=== PATIENT | male | born 1995 | race Two or more races ===

== ENCOUNTER 2020-01-24 09:53 | Emergency (ER) | payer SELFPAY ==
[~2020-01-24] VITALS: Ht 177.8 cm; Wt 56.1 kg
--- NOTE | 2020-01-24 10:53 | NUR ---
PRACTICE SUPPORT SPECIALIST: PT AMBULATORY TO ROOM FROM LOBBY.
--- NOTE | 2020-01-24 10:55 | NUR ---
SAME TRIAGE NOTE. PT BELIEVES HE HAS "SALT WATER POISONING" FROM USING SALT WATER IN HIS BONG WHILE AT HIS GRANDFATHER'S HOUSE IN [place] A COUPLE DAYS AGO. REPORTS SOME NAUSEA, COUGHING, AND WEIGHT LOSS MORE THAN 10LBS IN PAST COUPLE DAYS.
--- NOTE | 2020-01-24 11:10 | NUR ---
ERP AT BS.
--- NOTE | 2020-01-24 11:15 | NUR ---
PT BECAME TEARFUL WHEN TALKING TO ERP, STATES HE IS OUT OF WORK AND HASN'T BEEN ABLE TO FIND A PCP OR MENTAL HEALTH RESOURCES.
[2020-01-24] MEDS ORDERED: LORazepam 1MG TABLET PO ONE (11:30)
[2020-01-24 12:00] LABS: BASOPHILS # (AUTO) 0.02 x10^3/uL (0-0.1); BASOPHILS % (AUTO) 0 % (0-1); EOSINOPHILS # (AUTO) 0.03 x10^3/uL (0-0.4); EOSINOPHILS % (AUTO) 1 % (1-7); LYMPHOCYTES # (AUTO) 0.78 x10^3/uL (1-3.4); LYMPHOCYTES % (AUTO) 14 % (22-44); MD NO; MEAN CORPUSCULAR HEMOGLOBIN 30.4 pg (27.5-34.5); MEAN CORPUSCULAR HGB CONC 33.1 g/dL (33.2-36.2); MEAN CORPUSCULAR VOLUME 91.8 fL (81-97); MEAN PLATELET VOLUME 8.1 fL (7.4-10.4); MONOCYTES # (AUTO) 0.45 x10^3/uL (0.2-0.8); MONOCYTES % (AUTO) 8 % (2-9); NEUTROPHILS # (AUTO) 4.32 x10^3/uL (1.8-6.8); NEUTROPHILS % (AUTO) 77 % (42-75); PLATELET COUNT 219 x10^3/uL (130-400); RED CELL DISTRIBUTION WIDTH 13.5 % (9.4-14.8)
[2020-01-24] MEDS ORDERED: LORazepam 1MG TABLET ONE (12:01)
--- NOTE | 2020-01-24 12:03 | NUR ---
PT MEDICATED FOR ANXIETY PER ORDERS. STATES HE WAS UNDER A LOT OF STRESS AT HIS GRANDFATHER'S HOUSE.
[2020-01-24 12:04] LABS: ANION GAP 7 mmol/L (5-15); CALCIUM 9.2 mg/dL (8.5-10.1); CHLORIDE 113 mmol/L (98-107); CREATININE 0.96 mg/dL (0.7-1.3)
[2020-01-24 12:30] VITALS: BP 131/78
--- NOTE | 2020-01-24 12:35 | NUR ---
PT STATES HE FEELS MORE CALM AFTER ATIVAN. D/C INSTRUCTIONS & F/U APPT RV'WD WITH PT, HE VERBALIZES UNDERSTANDING. PT STATES HIS MOM WILL PICK HIM UP. AMBULATED OUT OF ED WITHOUT DIFFICULTY.
== END 2020-01-24 12:39 | disposition home or self-care (01) ==
LOC: ED 11:30
DX: F12.20 Cannabis dependence, uncomplicated (principal); F41.1 Generalized anxiety disorder; F17.210 Nicotine dependence, cigarettes, uncomplicated
CPT/HCPCS: 36415; 80048; 84439; 84443; 84481; 85025; 99283; 99406